=== PATIENT | female | born 1970 | race Caucasian/White ===

== ENCOUNTER 2019-05-15 12:58 | Emergency (ER) | payer MEDICAID ==
[~2019-05-15] VITALS: Ht 170.2 cm; Wt 97.8 kg
[2019-05-15 13:04] VITALS: BP 166/124
[2019-05-15] MEDS ORDERED: orphenadrine citrate 60mg/2ml inj. IM ONE (14:05)
[2019-05-15] MEDS ORDERED: ketorolac tromethamine 15mg/ml inj. IM ONE (14:05)
--- NOTE | 2019-05-15 14:20 | NUR ---
CALLED [phone] CORTES TO HELP PT FOLLOW UP WITH THEIR OFFICE OR GET WORKERS COMP INFO FROM THEIR OFFICE TO THEN HAVE PT FOLLOW UP WITH NEW WORKERS COMP PROVIDER.
[2019-05-15] MEDS ORDERED: METH-360 PO (15:12)
[2019-05-15] MEDS ORDERED: NAPR-56 PO (15:12)
== END 2019-05-15 15:27 | disposition home or self-care (01) ==
LOC: ER 12:58
DX: M54.5 Low back pain (principal); G89.29 Other chronic pain; Z56.0 Unemployment, unspecified; Z88.0 Allergy status to penicillin
CPT/HCPCS: 72100; 96372; 99283; J1885; J2360

== ENCOUNTER 2019-11-19 22:19 | Inpatient (IN) | payer MEDICAID ==
[~2019-11-19] VITALS: Ht 170.2 cm; Wt 90.0 kg
[~2019-11-19 22:19] MED LIST: METH-360 PO
[2019-11-19 22:49] LABS: BASOPHILS # (AUTO) 0.1 X10'3 (0-0.2); BASOPHILS % (AUTO) 0.9 % (0-1); EOSINOPHILS % (AUTO) 0.3 % (0-6); HEMATOCRIT 33.6 % (35.0-45.0); HEMOGLOBIN 11.3 g/dl (12.0-16.0); LYMPHOCYTES # (AUTO) 0.7 X10'3 (1.1-4.8); LYMPHOCYTES % (AUTO) 11.6 % (21-51); MEAN CORPUSCULAR HEMOGLOBIN 29.9 PG (27.0-31.0); MEAN CORPUSCULAR HGB CONC 33.5 g/dL (33.0-36.5); MEAN CORPUSCULAR VOLUME 89.3 FL (78-98); MEAN PLATELET VOLUME 8.5 FL (7.4-10.4); MONOCYTES # (AUTO) 0.4 X10'3 (0-0.9); NEUTROPHILS # (AUTO) 4.8 X10'3 (1.8-7.7); NEUTROPHILS % (AUTO) 81.2 % (42-75); PLATELET COUNT 241 X10'3 (140-440); RED BLOOD COUNT 3.76 X10'6 (4.20-5.60); RED CELL DISTRIBUTION WIDTH 14.8 % (11.5-14.5); WHITE BLOOD COUNT 5.9 X10'3 (4.5-11.0)
[2019-11-19 23:01] LABS: ALANINE AMINOTRANSFERASE 99 U/L (12-78); ALBUMIN 3.6 G/DL (3.4-5.0); ALKALINE PHOSPHATASE 114 IU/L (46-116); ANION GAP 9 (8-16); ASPARTATE AMINO TRANSFERASE 66 U/L (10-37); BILIRUBIN,TOTAL 0.4 MG/DL (0.1-1.0); BLOOD UREA NITROGEN 16 MG/DL (7-18); BUN/CREATININE RATIO 13.2 (6.6-38.0); CALCIUM 8.5 MG/DL (8.5-10.1); CHLORIDE 104 MMOL/L (99-107); CREATININE 1.21 MG/DL (0.40-0.90); GLUCOSE 125 MG/DL (70-104); POTASSIUM 4.2 MMOL/L (3.5-5.1); SODIUM 139 MMOL/L (135-145); TOTAL CARBON DIOXIDE 26.1 MMOL/L (24-32); TOTAL PROTEIN 7.1 G/DL (6.4-8.2); eGFR 47 ML/MIN
[2019-11-19] MEDS ORDERED: ipratropium/albuterol 3ml nebule NEB ONE (23:30)
[2019-11-19] MEDS ORDERED: predniSONE 20 mg tablet PO ONE (23:30)
[2019-11-20 00:29] LABS: D-DIMER 0.51 MG/L FEU (0-0.50)
[2019-11-20] MEDS ORDERED: furosemide 10 MG/1 ML 10ml inj IV ONE (00:50)
[2019-11-20] MEDS ORDERED: LEVO175T2 PO (01:07)
[2019-11-20] MEDS ORDERED: LORazepam 2 mg/ml vial IV ONE (02:05)
[2019-11-20] MEDS ORDERED: magnesium 2GM in 50ml NS 50 ML IV PRN (02:30)
[2019-11-20] MEDS ORDERED: acetaminophen 325mg tablet PO PRN (02:30)
[2019-11-20] MEDS ORDERED: potassium CL 10mEq/100ml bag 100 ML IV PRN ×2 (02:30)
[2019-11-20] MEDS ORDERED: potassium Cl 20 mEq SR tablet PO PRN ×2 (02:30)
[2019-11-20] MEDS ORDERED: ipratropium/albuterol 3ml nebule NEB PRN (02:30)
[2019-11-20] MEDS ORDERED: magnesium Cl slow-release 64mg tablet PO PRN (02:30)
[2019-11-20] MEDS ORDERED: ondansetron/PF 4mg/2ml inj IV PRN (02:30)
[2019-11-20] MEDS ORDERED: magnesium 4gm in 100ml NS 100 ML IV PRN (02:30)
[2019-11-20 04:00] VITALS: BP 154/121
--- NOTE | 2019-11-20 05:00 | NUR ---
Received patient report from Gus. Pt arrived to floor with elevated blood pressure. Re-checked one hour later. BP was further elevated at 174/112. notified. Received order to administer morning lisinopril and coreg early.
[2019-11-20] MEDS: ipratropium/albuterol 3ml nebule NEB PRN ×2 (05:16→17:38)
[2019-11-20] MEDS: carVEDilol 3.125mg tablet PO SCH ×2 (05:24→20:18)
[2019-11-20] MEDS: lisinopril 10 MG tablet PO SCH (05:24)
[2019-11-20] MEDS ORDERED: lisinopril 2.5mg tablet PO ONE (05:25)
[2019-11-20] MEDS ORDERED: carVEDilol 3.125mg tablet PO ONE (05:25)
[2019-11-20 05:35] VITALS: BP 174/117
--- NOTE | 2019-11-20 06:34 | NUR ---
Problems reprioritized. Patient report given, questions answered & plan of care reviewed with RHYS Bush.
--- NOTE | 2019-11-20 06:37 | NUR ---
Patient in room [facility]. I have received report from RHYS RIVERA and had the opportunity to ask questions and assume patient care.
[2019-11-20 07:00] VITALS: BP 130/70
[2019-11-20] MEDS: K and/or MAG REPLACEMENT MC SCH ×2 (08:00→20:00)
[2019-11-20] MEDS: heparin, porcine 5000 units/ml vial SQ SCH ×2 (08:35→20:18)
[2019-11-20] MEDS: furosemide 10 MG/1 ML 10ml inj IV SCH ×2 (08:35→20:17)
[2019-11-20 11:46] VITALS: BP 140/96
--- NOTE | 2019-11-20 18:18 | NUR ---
Problems reprioritized. Patient report given, questions answered & plan of care reviewed with MIGUEL RN & IMTIAZ RN.
[2019-11-20 20:15] VITALS: BP 124/84
[2019-11-21] VITALS: BP 102/55
[2019-11-21] MEDS: ipratropium/albuterol 3ml nebule NEB PRN ×2 (02:59→09:38)
[2019-11-21 06:24] LABS: BASOPHILS % (AUTO) 0.8 % (0-1); EOSINOPHILS # (AUTO) 0.1 X10'3 (0-0.9); EOSINOPHILS % (AUTO) 0.8 % (0-6); HEMATOCRIT 36.3 % (35.0-45.0); HEMOGLOBIN 12.2 g/dl (12.0-16.0); LYMPHOCYTES # (AUTO) 1.3 X10'3 (1.1-4.8); LYMPHOCYTES % (AUTO) 20.6 % (21-51); MEAN CORPUSCULAR HEMOGLOBIN 29.8 PG (27.0-31.0); MEAN CORPUSCULAR HGB CONC 33.6 g/dL (33.0-36.5); MEAN CORPUSCULAR VOLUME 88.7 FL (78-98); MEAN PLATELET VOLUME 9.1 FL (7.4-10.4); MONOCYTES # (AUTO) 0.4 X10'3 (0-0.9); MONOCYTES % (AUTO) 7.2 % (2-12); NEUTROPHILS # (AUTO) 4.3 X10'3 (1.8-7.7); NEUTROPHILS % (AUTO) 70.6 % (42-75); PLATELET COUNT 270 X10'3 (140-440); RED CELL DISTRIBUTION WIDTH 14.8 % (11.5-14.5); WHITE BLOOD COUNT 6.1 X10'3 (4.5-11.0)
--- NOTE | 2019-11-21 06:34 | NUR ---
Problems reprioritized. Patient report given, questions answered & plan of care reviewed with Kymberly JOINER.
[2019-11-21 07:05] LABS: ALBUMIN 3.4 G/DL (3.4-5.0); ANION GAP 8 (8-16); BLOOD UREA NITROGEN 31 MG/DL (7-18); BUN/CREATININE RATIO 23.7 (6.6-38.0); CALCIUM 8.7 MG/DL (8.5-10.1); CHLORIDE 104 MMOL/L (99-107); CREATININE 1.31 MG/DL (0.40-0.90); GLUCOSE 104 MG/DL (70-104); MAGNESIUM 2.1 MG/DL (1.5-2.4); POTASSIUM 3.6 MMOL/L (3.5-5.1); SODIUM 143 MMOL/L (135-145); TOTAL CARBON DIOXIDE 30.6 MMOL/L (24-32); eGFR 43 ML/MIN
[2019-11-21 07:32] VITALS: BP 108/69
[2019-11-21] MEDS: K and/or MAG REPLACEMENT MC SCH ×2 (08:00→20:00)
[2019-11-21] MEDS: heparin, porcine 5000 units/ml vial SQ SCH ×2 (09:42→22:17)
[2019-11-21] MEDS: levoTHYROXINE 175mcg tablet PO SCH (09:42)
[2019-11-21] MEDS: carVEDilol 3.125mg tablet PO SCH ×2 (09:43→22:18)
[2019-11-21] MEDS: furosemide 10 MG/1 ML 10ml inj IV SCH ×2 (09:50→22:18)
[2019-11-21] MEDS ORDERED: azithromycin/NS 500mg/250ml 250 ML IV ONE (10:10)
--- NOTE | 2019-11-21 10:17 | NUR ---
in to discuss with pt results of echocardiogram. Pt. express concerns of PNA. discussed this with pt. and started new antibiotic. See new order. Dr. Fields, mapping specialist has planned to round on pt. today per MD Newton.
[2019-11-21] MEDS: potassium Cl 20 mEq SR tablet PO SCH (10:57)
[2019-11-21] MEDS: lisinopril 10 MG tablet PO SCH (11:00)
[2019-11-21 11:01] VITALS: BP 113/82
[2019-11-21 11:58] VITALS: BP 129/85
--- NOTE | 2019-11-21 12:03 | NUR ---
PAGER ID: [phone] MESSAGE: DONNA GIBSON ArjunA PLEASE CALL ME REGARDING THIS PT. SHE IS HAVING A LOT OF SOB AND ANXIETY - VSS. LIVER ENZYMES ALSO ELEVATED. DO WANT TO CHECK LIPID PANEL OR HEP PANEL? GHASSAN [id number]
[2019-11-21] MEDS ORDERED: LORazepam 2 mg/ml vial IV PRN (12:05)
[2019-11-21] MEDS ORDERED: ipratropium/albuterol 3ml nebule NEB SCH (14:00)
[2019-11-21] MEDS: ipratropium/albuterol 3ml nebule NEB SCH ×2 (15:03→19:52)
--- NOTE | 2019-11-21 17:09 | NUR ---
Spoke to about inserted pain pump. Records from [facility] are being faxed over her. MD was not concerned as he believes pt. is already receiving care for this pump and that the pt. has a plan in regards to the pump. [facility]'s office states that pain pump was last refilled in 2014 and so there would be medication being dispensed at this time. aware.
[2019-11-21 18:00] VITALS: BP 100/68
--- NOTE | 2019-11-21 18:55 | NUR ---
GAVE REPORT TO MIGUEL JOINER AND IMTIAZ JOINER ORIENTED.
[2019-11-21 22:18] VITALS: BP 105/74
[2019-11-22] VITALS: BP 112/73
[2019-11-22 05:05] LABS: BASOPHILS % (AUTO) 0.9 % (0-1); EOSINOPHILS # (AUTO) 0.2 X10'3 (0-0.9); HEMATOCRIT 37.5 % (35.0-45.0); HEMOGLOBIN 12.3 g/dl (12.0-16.0); LYMPHOCYTES # (AUTO) 1.6 X10'3 (1.1-4.8); LYMPHOCYTES % (AUTO) 29.3 % (21-51); MEAN CORPUSCULAR HEMOGLOBIN 28.9 PG (27.0-31.0); MEAN CORPUSCULAR HGB CONC 32.7 g/dL (33.0-36.5); MEAN CORPUSCULAR VOLUME 88.3 FL (78-98); MEAN PLATELET VOLUME 8.5 FL (7.4-10.4); MONOCYTES # (AUTO) 0.5 X10'3 (0-0.9); MONOCYTES % (AUTO) 9.2 % (2-12); NEUTROPHILS # (AUTO) 3.1 X10'3 (1.8-7.7); NEUTROPHILS % (AUTO) 57.6 % (42-75); PLATELET COUNT 269 X10'3 (140-440); RED BLOOD COUNT 4.25 X10'6 (4.20-5.60); WHITE BLOOD COUNT 5.5 X10'3 (4.5-11.0)
[2019-11-22 05:48] LABS: ALANINE AMINOTRANSFERASE 66 U/L (12-78); ALBUMIN 3.6 G/DL (3.4-5.0); ALKALINE PHOSPHATASE 82 IU/L (46-116); ANION GAP 9 (8-16); ASPARTATE AMINO TRANSFERASE 36 U/L (10-37); BILIRUBIN,DIRECT 0.1 MG/DL (0-0.3); BILIRUBIN,TOTAL 0.4 MG/DL (0.1-1.0); BLOOD UREA NITROGEN 30 MG/DL (7-18); BUN/CREATININE RATIO 22.4 (6.6-38.0); CALCIUM 8.9 MG/DL (8.5-10.1); CHLORIDE 103 MMOL/L (99-107); CHOL/HDL RATIO 5.2 (0.00-4.99); CHOLESTEROL 194 MG/DL (0-200); CREATININE 1.34 MG/DL (0.40-0.90); GLUCOSE 94 MG/DL (70-104); HDL CHOLESTEROL 37 MG/DL (35-60); LDL CHOLESTEROL 131 MG/DL (50-100); MAGNESIUM 2.1 MG/DL (1.5-2.4); POTASSIUM 3.8 MMOL/L (3.5-5.1); SODIUM 142 MMOL/L (135-145); TOTAL CARBON DIOXIDE 29.6 MMOL/L (24-32); TOTAL PROTEIN 7.2 G/DL (6.4-8.2); TRIGLYCERIDES 161 MG/DL (20-135); eGFR 42 ML/MIN
--- NOTE | 2019-11-22 06:29 | NUR ---
Problems reprioritized. Patient report given, questions answered & plan of care reviewed with RHYS Traylor.
[2019-11-22 07:00] VITALS: BP 105/67
[2019-11-22] MEDS: ipratropium/albuterol 3ml nebule NEB SCH ×4 (07:40→20:13)
[2019-11-22] MEDS: furosemide 10 MG/1 ML 10ml inj IV SCH ×2 (07:41→20:09)
[2019-11-22] MEDS: K and/or MAG REPLACEMENT MC SCH ×2 (07:41→19:03)
[2019-11-22] MEDS: levoTHYROXINE 175mcg tablet PO SCH (07:42)
[2019-11-22] MEDS: azithromycin 250mg tablet PO SCH (07:42)
[2019-11-22] MEDS: carVEDilol 3.125mg tablet PO SCH ×2 (07:42→20:09)
[2019-11-22] MEDS: potassium Cl 20 mEq SR tablet PO SCH (07:42)
[2019-11-22] MEDS: heparin, porcine 5000 units/ml vial SQ SCH ×2 (07:43→20:09)
[2019-11-22] MEDS: lisinopril 10 MG tablet PO SCH (07:54)
--- NOTE | 2019-11-22 09:06 | NUR ---
Paged CM regarding LIFEvest form for MD, and home 02.
--- NOTE | 2019-11-22 10:48 | NUR ---
Lifevest to be fitted tomorrow per CM. Pt. does not qualify for home 02.
[2019-11-22 11:00] VITALS: BP 122/78
--- NOTE | 2019-11-22 15:07 | NUR ---
PAGER ID: [phone] MESSAGE: Trina Tarango 360A Pt. does not have vaccinations- flu or PNA. Want flu swab? Pt. requesting mucolytic. Thank you. Kymberly [phone]
--- NOTE | 2019-11-22 17:09 | NUR ---
PAGER ID: [phone] MESSAGE: Trina Estevez positive for influenza A. Kymberly [phone]
[2019-11-22] MEDS ORDERED: oseltamivir phos 75mg capsule PO ONE (17:25)
[2019-11-22 18:00] VITALS: BP 132/92
--- NOTE | 2019-11-22 18:10 | NUR ---
Patient in room [facility]. I have received report from Kymberly JOINER and had the opportunity to ask questions and assume patient care.
--- NOTE | 2019-11-22 18:16 | NUR ---
Gave report to Clint JOINER.
[2019-11-22] MEDS: lactobacillus rhamnosus 10,000 MMU CELLS/CAPSULE PO SCH (20:09)
[2019-11-22] MEDS: guaiFENesin ER 600mg tablet PO SCH (20:09)
[2019-11-23] VITALS: BP 96/89
[2019-11-23 05:24] LABS: BASOPHILS % (AUTO) 0.7 % (0-1); EOSINOPHILS # (AUTO) 0.2 X10'3 (0-0.9); HEMATOCRIT 38.1 % (35.0-45.0); HEMOGLOBIN 12.7 g/dl (12.0-16.0); LYMPHOCYTES # (AUTO) 1.9 X10'3 (1.1-4.8); LYMPHOCYTES % (AUTO) 32.9 % (21-51); MEAN CORPUSCULAR HEMOGLOBIN 29.3 PG (27.0-31.0); MEAN CORPUSCULAR HGB CONC 33.3 g/dL (33.0-36.5); MEAN CORPUSCULAR VOLUME 88.1 FL (78-98); MEAN PLATELET VOLUME 8.6 FL (7.4-10.4); MONOCYTES # (AUTO) 0.7 X10'3 (0-0.9); MONOCYTES % (AUTO) 11.2 % (2-12); NEUTROPHILS % (AUTO) 52.2 % (42-75); PLATELET COUNT 281 X10'3 (140-440); RED BLOOD COUNT 4.33 X10'6 (4.20-5.60); WHITE BLOOD COUNT 5.8 X10'3 (4.5-11.0)
[2019-11-23 05:25] LABS: ALBUMIN 3.7 G/DL (3.4-5.0); ANION GAP 7 (8-16); BLOOD UREA NITROGEN 38 MG/DL (7-18); BUN/CREATININE RATIO 25.5 (6.6-38.0); CALCIUM 9.4 MG/DL (8.5-10.1); CHLORIDE 103 MMOL/L (99-107); CREATININE 1.49 MG/DL (0.40-0.90); GLUCOSE 97 MG/DL (70-104); MAGNESIUM 2.2 MG/DL (1.5-2.4); POTASSIUM 3.6 MMOL/L (3.5-5.1); SODIUM 141 MMOL/L (135-145); TOTAL CARBON DIOXIDE 30.6 MMOL/L (24-32); eGFR 37 ML/MIN
--- NOTE | 2019-11-23 06:42 | NUR ---
Patient in room [facility]. I have received report from Clint JOINER and had the opportunity to ask questions and assume patient care.
[2019-11-23 07:30] VITALS: BP 105/62
[2019-11-23] MEDS: ipratropium/albuterol 3ml nebule NEB SCH ×3 (07:39→15:00)
[2019-11-23] MEDS: carVEDilol 3.125mg tablet PO SCH (08:00)
[2019-11-23] MEDS: K and/or MAG REPLACEMENT MC SCH (08:00)
[2019-11-23] MEDS: furosemide 10 MG/1 ML 10ml inj IV SCH (08:00)
[2019-11-23] MEDS: lisinopril 10 MG tablet PO SCH (08:00)
[2019-11-23] MEDS ORDERED: oseltamivir phos 75mg capsule PO SCH (08:00)
[2019-11-23 09:00] VITALS: BP 98/52
[2019-11-23] MEDS: lactobacillus rhamnosus 10,000 MMU CELLS/CAPSULE PO SCH (09:13)
[2019-11-23] MEDS: potassium Cl 20 mEq SR tablet PO SCH (09:14)
[2019-11-23] MEDS: guaiFENesin ER 600mg tablet PO SCH (09:14)
[2019-11-23] MEDS: levoTHYROXINE 175mcg tablet PO SCH (09:14)
[2019-11-23] MEDS: azithromycin 250mg tablet PO SCH (09:14)
[2019-11-23] MEDS: heparin, porcine 5000 units/ml vial SQ SCH (09:15)
[2019-11-23] MEDS ORDERED: TAM75C PO (09:32)
[2019-11-23] MEDS ORDERED: COR3.125T PO (09:32)
[2019-11-23] MEDS ORDERED: LISI10TA4 PO (09:32)
[2019-11-23] MEDS ORDERED: IPRA3AMP9 NEB (09:32)
[2019-11-23] MEDS ORDERED: FURO-149 PO (09:32)
[2019-11-23] MEDS ORDERED: COMP1EAC86 INH (09:34)
[2019-11-23] MEDS ORDERED: POTA20TA19 PO (09:36)
[2019-11-23] MEDS ORDERED: FLU VACC QS2019-20 36MOS UP/PF 60 MCG/0.5 ML SYRINGE IMVAC ONE (10:00)
[2019-11-23 10:09] LABS: ALANINE AMINOTRANSFERASE 65 U/L (12-78); ALBUMIN/GLOBULIN RATIO 0.9 (1.1-1.5); ALKALINE PHOSPHATASE 86 IU/L (46-116); ASPARTATE AMINO TRANSFERASE 36 U/L (10-37); BILIRUBIN,TOTAL 0.3 MG/DL (0.1-1.0); TOTAL PROTEIN 7.6 G/DL (6.4-8.2)
[2019-11-23 10:17] LABS: BILIRUBIN,DIRECT 0.1 MG/DL (0-0.3)
[2019-11-23 11:00] VITALS: BP 106/67
--- NOTE | 2019-11-23 17:15 | NUR ---
Pt stable and appropriate for D/C. Tele d/c'd, PIV d/c'd with cannula intact. D/C instructions and d/c meds reviewed. D/C meds escripted to Gerry Rivero. Pt instructed to call Dr Fields's office Monday to setup 1 wk followup appt. Pt to call and setup f/u appt with PCP. Sonia Nation on pt with all apparatus home with pt, instructions given by company rep. Home nebulizer compressor from [employer] home with pt following instructions from RN on home use, care and med administration. Phone numbers provided for [employer] Can[facility], and Sonia Nation. All personal belongings home with pt. Pt down to [place] with mask/droplet precautions observed via w/c accompanied by RN student and family. Pt home via personal vehicle.
== END 2019-11-23 17:15 | disposition home or self-care (01) | DRG 194 ==
LOC: ER 22:19 → ED HOLD 11-20 02:36 → SUR 3N 11-20 03:52
PROVIDERS: ADMIT Internal Medicine; ATTEND Hospitalist
DX: I13.0 Hypertensive heart and chronic kidney disease with heart failure and stage 1 through stage 4 chronic kidney disease, or unspecified chronic kidney disease (principal); N17.0 Acute kidney failure with tubular necrosis; I11.0 Hypertensive heart disease with heart failure; I42.0 Dilated cardiomyopathy; E03.9 Hypothyroidism, unspecified; I50.23 Acute on chronic systolic (congestive) heart failure; I50.9 Heart failure, unspecified; F41.9 Anxiety disorder, unspecified; G89.29 Other chronic pain; M54.5 Low back pain; E66.01 Morbid (severe) obesity due to excess calories; J10.1 Influenza due to other identified influenza virus with other respiratory manifestations; N18.9 Chronic kidney disease, unspecified; Z87.891 Personal history of nicotine dependence; Z98.1 Arthrodesis status; Z68.31 Body mass index [BMI] 31.0-31.9, adult; Z88.0 Allergy status to penicillin; Z56.0 Unemployment, unspecified
CPT/HCPCS: 36415; 71045; 71250; 80048; 80053; 80061; 80076; 83735; 83880; 84443; 84484; 85025; 85379; 87081; 87502; 87503; 93005; 93306; 94640; 94667; 94760; 96374; 97116; 97161; 97530; 99285; G0378; J0456; J1644; J1940; J2060; J7512

== ENCOUNTER 2020-05-03 16:31 | Emergency (ER) | payer MEDICAID ==
[~2020-05-03] VITALS: Ht 170.2 cm; Wt 102.3 kg
[~2020-05-03 16:31] MED LIST changes: +COMP1EAC86 INH; +COR3.125T PO; +FURO-149 PO; +IPRA3AMP9 NEB; +LEVO175T2 PO; +LISI10TA4 PO; -METH-360 PO; +TAM75C PO
[2020-05-03 16:34] VITALS: BP 126/73
[2020-05-03] MEDS ORDERED: HYDR-4353 PO (17:03)
== END 2020-05-03 17:15 | disposition home or self-care (01) ==
LOC: ER 16:31
DX: S93.602A Unspecified sprain of left foot, initial encounter (principal); I11.0 Hypertensive heart disease with heart failure; I50.9 Heart failure, unspecified; G89.29 Other chronic pain; F17.210 Nicotine dependence, cigarettes, uncomplicated; Z56.0 Unemployment, unspecified; Z88.0 Allergy status to penicillin; Z79.899 Other long term (current) drug therapy; X50.1XXA Overexertion from prolonged static or awkward postures, initial encounter; Y93.89 Activity, other specified; Y92.89 Other specified places as the place of occurrence of the external cause; Y99.8 Other external cause status
CPT/HCPCS: 73630; 99283

== ENCOUNTER 2021-04-03 13:07 | Emergency (ER) | payer MEDICAID ==
[~2021-04-03] VITALS: Ht 170.2 cm; Wt 100.0 kg
[~2021-04-03 13:07] MED LIST changes: +LISI10TA27 PO; -LISI10TA4 PO
[2021-04-03 14:41] LABS: URINE HCG NEGATIVE (NEG)
[2021-04-03 14:43] LABS: CLARITY,URINE CLEAR (Clear); COLOR,URINE YELLOW (Yellow); GLUCOSE, URINE NEGATIVE (Neg); KETONES,URINE NEGATIVE (Neg); LEUKOCYTE ESTERASE ,URINE NEGATIVE (Neg); NITRITES, URINE NEGATIVE (Neg); OCCULT BLOOD,URINE NEGATIVE (Neg); PROTEIN,URINE NEGATIVE (Neg); UROBILINOGEN,URINE 0.2 E.U/dL (0.2-1.0)
[2021-04-03 14:45] LABS: UA COLLECTION TYPE CLN CATCH MIDSTREAM
[2021-04-03 15:04] LABS: BASOPHILS # (AUTO) 0.1 X10'3 (0-0.2); BASOPHILS % (AUTO) 1.3 % (0-1); EOSINOPHILS # (AUTO) 0.6 X10'3 (0-0.9); HEMATOCRIT 39.3 % (35.0-45.0); HEMOGLOBIN 13.2 g/dl (12.0-16.0); LYMPHOCYTES # (AUTO) 1.4 X10'3 (1.1-4.8); LYMPHOCYTES % (AUTO) 20.9 % (21-51); MEAN CORPUSCULAR HEMOGLOBIN 28.5 PG (27.0-31.0); MEAN CORPUSCULAR HGB CONC 33.6 g/dL (33.0-36.5); MEAN PLATELET VOLUME 8.6 FL (7.4-10.4); MONOCYTES # (AUTO) 0.8 X10'3 (0-0.9); MONOCYTES % (AUTO) 12.5 % (2-12); NEUTROPHILS # (AUTO) 3.6 X10'3 (1.8-7.7); NEUTROPHILS % (AUTO) 56.3 % (42-75); PLATELET COUNT 278 X10'3 (140-440); RED BLOOD COUNT 4.62 X10'6 (4.20-5.60); RED CELL DISTRIBUTION WIDTH 13.3 % (11.5-14.5); WHITE BLOOD COUNT 6.5 X10'3 (4.5-11.0)
[2021-04-03 15:16] LABS: ALBUMIN 3.5 G/DL (3.4-5.0); ANION GAP 7 (8-16); BLOOD UREA NITROGEN 22 MG/DL (7-18); BUN/CREATININE RATIO 20.2 (6.6-38.0); CALCIUM 8.9 MG/DL (8.5-10.1); CHLORIDE 107 MMOL/L (99-107); CREATININE 1.09 MG/DL (0.40-0.90); GLUCOSE 105 MG/DL (70-104); POTASSIUM 4.6 MMOL/L (3.5-5.1); SODIUM 141 MMOL/L (135-145); TOTAL CARBON DIOXIDE 26.7 MMOL/L (24-32); eGFR 53 ML/MIN
[2021-04-03 16:36] VITALS: BP 146/74
== END 2021-04-03 16:44 | disposition home or self-care (01) ==
LOC: ER 13:09
DX: B34.9 Viral infection, unspecified (principal); R42 Dizziness and giddiness; Z20.822 Contact with and (suspected) exposure to COVID-19; I11.0 Hypertensive heart disease with heart failure; Z56.0 Unemployment, unspecified; Z88.0 Allergy status to penicillin; Z79.899 Other long term (current) drug therapy
CPT/HCPCS: 36415; 71045; 80048; 81003; 81025; 85025; 87635; 93005; 99285; C9803

== ENCOUNTER 2021-08-09 16:03 | Emergency (ER) | payer MEDICAID ==
[~2021-08-09] VITALS: Ht 170.2 cm; Wt 95.5 kg
[2021-08-09 17:38] VITALS: BP 145/95
[2021-08-09] MEDS ORDERED: HYDROcodone/acetaminophen 5mg/325mg tablet PO ONE (18:40)
[2021-08-09] MEDS ORDERED: ondansetron 4mg rapidly disintigrating tab PO ONE (18:40)
[2021-08-09] MEDS ORDERED: ONDA4TAB6 PO (18:53)
[2021-08-09] MEDS ORDERED: HYDR-3965 PO (18:53)
== END 2021-08-09 19:23 | disposition home or self-care (01) ==
LOC: ER 16:04
DX: S62.647A Nondisplaced fracture of proximal phalanx of left little finger, initial encounter for closed fracture (principal); G89.29 Other chronic pain; I11.0 Hypertensive heart disease with heart failure; I50.9 Heart failure, unspecified; Z98.890 Other specified postprocedural states; Z88.0 Allergy status to penicillin; Z79.899 Other long term (current) drug therapy; W19.XXXA Unspecified fall, initial encounter; Y93.89 Activity, other specified; Y92.89 Other specified places as the place of occurrence of the external cause; Y99.8 Other external cause status
CPT/HCPCS: 29125; 73110; 73130; 73610; 99284

== ENCOUNTER 2023-10-27 12:17 | Inpatient (IN) | payer MEDICAID ==
[~2023-10-27] VITALS: Ht 170.2 cm; Wt 97.4 kg
[~2023-10-27 12:17] MED LIST changes: +ONDA4TAB6 PO
[2023-10-27 13:06] LABS: BASOPHILS # (AUTO) 0.1 X10'3 (0-0.2); BASOPHILS % (AUTO) 0.8 % (0-1); EOSINOPHILS # (AUTO) 0.6 X10'3 (0-0.9); EOSINOPHILS % (AUTO) 3.9 % (0-6); HEMATOCRIT 47.1 % (35.0-45.0); HEMOGLOBIN 15.7 g/dl (12.0-16.0); LYMPHOCYTES # (AUTO) 1.6 X10'3 (1.1-4.8); LYMPHOCYTES % (AUTO) 10.1 % (21-51); MEAN CORPUSCULAR HEMOGLOBIN 29.2 PG (27.0-31.0); MEAN CORPUSCULAR HGB CONC 33.2 g/dL (33.0-36.5); MEAN CORPUSCULAR VOLUME 87.9 FL (78-98); MEAN PLATELET VOLUME 8.4 FL (7.4-10.4); MONOCYTES # (AUTO) 0.9 X10'3 (0-0.9); MONOCYTES % (AUTO) 5.4 % (2-12); NEUTROPHILS # (AUTO) 12.6 X10'3 (1.8-7.7); NEUTROPHILS % (AUTO) 79.8 % (42-75); PLATELET COUNT 330 X10'3 (140-440); RED BLOOD COUNT 5.36 X10'6 (4.20-5.60); RED CELL DISTRIBUTION WIDTH 13.7 % (11.5-14.5); WHITE BLOOD COUNT 15.8 X10'3 (4.5-11.0)
[2023-10-27 13:11] LABS: BILIRUBIN,URINE NEGATIVE (Neg); CLARITY,URINE SLIGHTLY CLOUDY (Clear); COLOR,URINE YELLOW (Yellow); GLUCOSE, URINE NEGATIVE (Neg); KETONES,URINE NEGATIVE (Neg); LEUKOCYTE ESTERASE ,URINE NEGATIVE (Neg); NITRITES, URINE NEGATIVE (Neg); OCCULT BLOOD,URINE NEGATIVE (Neg); PROTEIN,URINE NEGATIVE (Neg); UROBILINOGEN,URINE 0.2 E.U/dL (0.2-1.0)
[2023-10-27 13:13] LABS: UA COLLECTION TYPE CLN CATCH MIDSTREAM; URINE HCG NEGATIVE (NEG)
[2023-10-27] MEDS ORDERED: LIDOcaine Viscous 15ml cup MM PRN (13:25)
[2023-10-27] MEDS ORDERED: dicyclomine 10 MG capsule PO ONE (13:25)
[2023-10-27] MEDS ORDERED: mag hydrox/Alum hydrox/simeth 30ml oral suspension PO ONE (13:25)
[2023-10-27 13:40] LABS: MUCUS STRANDS MODERATE /LPF (Neg); SQUAMOUS EPITHELIAL CELL,UR MODERATE /LPF (FEW)
[2023-10-27 13:41] LABS: BACTERIA,URINE 1+ /HPF (Neg); RBC,URINE 0-2 /HPF (0-2); WBC,URINE 0-4 /HPF (0-4)
[2023-10-27 13:44] LABS: ALANINE AMINOTRANSFERASE 36 U/L (12-78); ALBUMIN 3.9 G/DL (3.4-5.0); ALBUMIN/GLOBULIN RATIO 0.9 (1.1-1.5); ALKALINE PHOSPHATASE 111 IU/L (46-116); ANION GAP 7 (8-16); ASPARTATE AMINO TRANSFERASE 25 U/L (10-37); BILIRUBIN,TOTAL 0.4 MG/DL (0.1-1.0); BLOOD UREA NITROGEN 19 MG/DL (7-18); BUN/CREATININE RATIO 19.2 (10.0-20.0); CALCIUM 9.7 MG/DL (8.5-10.1); CHLORIDE 104 MMOL/L (99-107); CREATININE 0.99 MG/DL (0.40-0.90); GLUCOSE 122 MG/DL (70-104); LIPASE 47 U/L (16-77); POTASSIUM 4.5 MMOL/L (3.5-5.1); SODIUM 141 MMOL/L (135-145); TOTAL CARBON DIOXIDE 30.1 MMOL/L (24-32); TOTAL PROTEIN 8.1 G/DL (6.4-8.2); eGFR 58 ML/MIN
[2023-10-27] MEDS ORDERED: morphine 4 MG/ML inj SYRINge IV ONE ×2 (14:10→15:10)
[2023-10-27] MEDS ORDERED: normal saline 1000ML IV soln IVB ONE (14:10)
[2023-10-27] MEDS ORDERED: ondansetron/PF 4mg/2ml inj IV ONE (14:10)
[2023-10-27] MEDS ORDERED: iohexol 300mg/ml 100ml inj. ONE (14:19)
[2023-10-27] MEDS ORDERED: LidoCAINE 2% Topical Jelly 11mL syringe MM ONE (15:15)
[2023-10-27] MEDS ORDERED: magnesium hydroxide 30ml (MOM) UD suspension PO PRN (16:15)
[2023-10-27] MEDS ORDERED: potassium Cl 40MEQ/1/2NS 520ml 520 ML IV PRN (16:15)
[2023-10-27] MEDS ORDERED: morphine 2 MG/ML inj. syringe IV PRN (16:15)
[2023-10-27] MEDS ORDERED: mag hydrox/Alum hydrox/simeth 30ml oral suspension PO PRN (16:15)
[2023-10-27] MEDS ORDERED: potassium Cl 20 mEq SR tablet PO PRN ×2 (16:15)
[2023-10-27] MEDS ORDERED: magnesium 4gm in 100ml NS 100 ML IV PRN (16:15)
[2023-10-27] MEDS ORDERED: acetaminophen 325mg tablet PO PRN (16:15)
[2023-10-27] MEDS ORDERED: magnesium 2GM in 50ml NS 50 ML IV PRN (16:15)
[2023-10-27] MEDS ORDERED: ondansetron/PF 4mg/2ml inj IV PRN (16:15)
[2023-10-27] MEDS ORDERED: magnesium Cl slow-release 64mg tablet PO PRN (16:15)
[2023-10-27 16:38] LABS: PRO BRAIN NATRIURETIC PEPTIDE 139 PG/ML (0-125)
[2023-10-27 16:49] LABS: APTT 28 SECONDS (22-32); PROTHROMBIN TIME 9.8 SECONDS (9.0-12.0)
[2023-10-27 16:54] LABS: INR 0.9 INR
[2023-10-27 19:00] VITALS: TEMP 98.3
[2023-10-27] MEDS: docusate sod 100mg capsule PO SCH (19:47)
[2023-10-27] MEDS: K and/or MAG REPLACEMENT MC SCH (19:48)
[2023-10-27] MEDS: morphine 2 MG/ML inj. syringe IV PRN (19:55)
[2023-10-28 03:46] LABS: BASOPHILS # (AUTO) 0.2 X10'3 (0-0.2); BASOPHILS % (AUTO) 1.8 % (0-1); EOSINOPHILS # (AUTO) 0.6 X10'3 (0-0.9); EOSINOPHILS % (AUTO) 5.1 % (0-6); HEMATOCRIT 42.9 % (35.0-45.0); HEMOGLOBIN 13.7 g/dl (12.0-16.0); LYMPHOCYTES # (AUTO) 1.7 X10'3 (1.1-4.8); LYMPHOCYTES % (AUTO) 13.9 % (21-51); MEAN CORPUSCULAR HEMOGLOBIN 28.2 PG (27.0-31.0); MEAN CORPUSCULAR HGB CONC 31.9 g/dL (33.0-36.5); MEAN CORPUSCULAR VOLUME 88.4 FL (78-98); MEAN PLATELET VOLUME 8.6 FL (7.4-10.4); MONOCYTES # (AUTO) 1.1 X10'3 (0-0.9); MONOCYTES % (AUTO) 8.9 % (2-12); NEUTROPHILS # (AUTO) 8.6 X10'3 (1.8-7.7); NEUTROPHILS % (AUTO) 70.3 % (42-75); PLATELET COUNT 285 X10'3 (140-440); RED BLOOD COUNT 4.85 X10'6 (4.20-5.60); RED CELL DISTRIBUTION WIDTH 13.8 % (11.5-14.5); WHITE BLOOD COUNT 12.2 X10'3 (4.5-11.0)
[2023-10-28 03:48] LABS: APTT 27 SECONDS (22-32); INR 0.9 INR; PROTHROMBIN TIME 10.1 SECONDS (9.0-12.0)
[2023-10-28] MEDS: morphine 2 MG/ML inj. syringe IV PRN (04:08)
[2023-10-28 04:13] LABS: ALANINE AMINOTRANSFERASE 29 U/L (12-78); ALBUMIN 3.3 G/DL (3.4-5.0); ALBUMIN/GLOBULIN RATIO 0.9 (1.1-1.5); ALKALINE PHOSPHATASE 102 IU/L (46-116); ANION GAP 4 (8-16); ASPARTATE AMINO TRANSFERASE 13 U/L (10-37); BILIRUBIN,TOTAL 0.5 MG/DL (0.1-1.0); BLOOD UREA NITROGEN 15 MG/DL (7-18); BUN/CREATININE RATIO 14.3 (10.0-20.0); CALCIUM 8.5 MG/DL (8.5-10.1); CHLORIDE 106 MMOL/L (99-107); CREATININE 1.05 MG/DL (0.40-0.90); FREE T4 (FREE THYROXINE) 1.07 NG/DL (0.73-1.40); GLUCOSE 120 MG/DL (70-104); MAGNESIUM 2.1 MG/DL (1.5-2.4); PHOSPHORUS 3.4 MG/DL (2.3-4.5); SODIUM 140 MMOL/L (135-145); TOTAL CARBON DIOXIDE 29.9 MMOL/L (24-32); eCRCL 59 ML/MIN; eGFR 54 ML/MIN
[2023-10-28] MEDS: K and/or MAG REPLACEMENT MC SCH (08:00)
[2023-10-28] MEDS: docusate sod 100mg capsule PO SCH (08:00)
[2023-10-28] MEDS ORDERED: diatr meglu/diatrizoate 30ml oral sol.-(3 dose) bottle PO ONE ×2 (08:55→09:00)
[2023-10-28] MEDS ORDERED: BUPIVAcaine 2.5mg/ml inj 50ml vial (contains preservative) ONE (10:06)
[2023-10-28] MEDS ORDERED: LIDOcaine 1% 30ml preserv. free vial ONE (10:06)
[2023-10-28] MEDS ORDERED: BUPIVACAINE liposomal/PF 13.3 MG/ML vial IM ONE (10:06)
[2023-10-28] MEDS ORDERED: morphine 4 MG/ML inj SYRINge IV PRN (13:25)
[2023-10-28] MEDS ORDERED: morphine 2 MG/ML inj. syringe IV PRN (13:25)
[2023-10-28] MEDS ORDERED: ondansetron/PF 4mg/2ml inj IV PRN (13:25)
[2023-10-28] MEDS ORDERED: meperidine/PF 25mg/ml syringe IV PRN ×3 (13:25)
[2023-10-28] MEDS ORDERED: ringers solution, lacted 1,000 ML IV SCH (13:25)
[2023-10-28] MEDS ORDERED: proCHLORperazine 10 MG/2 ml inj IV PRN (13:25)
[2023-10-28 15:04] VITALS: BP 136/81; PULSE 85; RESP 16; O2SAT 97
== END 2023-10-28 18:16 | disposition left against medical advice (07) | DRG 247 ==
LOC: ER 12:18 → ED HOLD 16:13 → PACU 10-28 12:47 → ED HOLD 10-28 13:28
PROVIDERS: ADMIT Internal Medicine; ATTEND Internal Medicine
DX: K56.609 Unspecified intestinal obstruction, unspecified as to partial versus complete obstruction (principal); I11.0 Hypertensive heart disease with heart failure; I50.22 Chronic systolic (congestive) heart failure; E03.9 Hypothyroidism, unspecified; K52.9 Noninfective gastroenteritis and colitis, unspecified; K57.30 Diverticulosis of large intestine without perforation or abscess without bleeding; F17.210 Nicotine dependence, cigarettes, uncomplicated; G89.29 Other chronic pain; I08.1 Rheumatic disorders of both mitral and tricuspid valves; Z88.0 Allergy status to penicillin; Z79.899 Other long term (current) drug therapy; Z56.0 Unemployment, unspecified
CPT/HCPCS: 36415; 71045; 74176; 74177; 80053; 81001; 81025; 83605; 83690; 83735; 83880; 84100; 84145; 84439; 84443; 85025; 85610; 85730; 87040; 93005; 99285; C9290; G0378; J2270; J2405; J3490; J7030; Q9963; Q9967